=== PATIENT | female | born 1990 ===

== ENCOUNTER 2017-10-26 10:04 | Emergency (ER) | payer OTHER ==
[2017-10-26 10:20] VITALS: BP 122/81; PULSE 94; RESP 18; TEMP 99.9; O2SAT 99
--- NOTE | 2017-10-26 11:04 | C.PDOC ---
History Of Present Illness 26 year old female presents to the ER with complaints of nonproductive cough, headache, sore throat, runny nose, and chills since yesterday. Patient has not been seen by PMD for current symptoms. She denies abdominal pain, nausea, vomiting, diarrhea, dysuria. Time Seen by Provider: 10/26/17 10:08 Chief Complaint (Nursing): Cough, Cold, Congestion History Per: Patient History/Exam Limitations: no limitations Onset/Duration Of Symptoms: Days Current Symptoms Are (Timing): Still Present Location Of Pain: Headache Sick Contacts (Context): None Associated Symptoms: Chills, Sore Throat, Cough (Nonproductive), Sinus Drainage. denies: Nausea, Vomiting, Diarrhea, Other (Abdominal pain) Ear Symptoms: Bilateral: None Severity: Mild Recent travel outside of the [place]: No Past Medical History Reviewed: Historical Data, Nursing Documentation, Vital Signs Vital Signs: Last Vital Signs Temp 99.9 F H 10/26/17 10:13 Pulse 94 H 10/26/17 10:13 Resp 18 10/26/17 10:49 BP 122/81 10/26/17 10:13 Pulse Ox 99 10/27/17 17:13 - Medical History PMH: No Chronic Diseases Family History: States: No Known Family Hx - Social History Hx Tobacco Use: No Hx Alcohol Use: No Hx Substance Use: No - Immunization History Hx Influenza Vaccination: No Hx Pneumococcal Vaccination: No Review Of Systems Constitutional: Positive for: Chills ENT: Positive for: Nose Congestion, Throat Pain Cardiovascular: Negative for: Chest Pain Respiratory: Positive for: Cough (Nonproductive). Negative for: Shortness of Breath Gastrointestinal: Negative for: Nausea, Vomiting, Abdominal Pain, Diarrhea Genitourinary: Negative for: Dysuria, Hematuria Skin: Negative for: Rash Neurological: Positive for: Headache Physical Exam - Physical Exam Appears: Well, Non-toxic, Other (Occasionally coughing, speaking in full sentences) Skin: Normal Color, Warm, Dry, No Rash Head: Normacephalic Eye(s): bilateral: Normal Inspection Ear(s): Bilateral: Normal Nose: Normal Oral Mucosa: Moist Throat: Erythema (Mild), No Exudate, No Drooling, No Other (Swelling) Neck: Normal, Supple Lymphatic: No Adenopathy Cardiovascular: Rhythm Regular Respiratory: Normal Breath Sounds, No Rales, No Rhonchi, No Wheezing Gastrointestinal/Abdominal: Normal Exam, Bowel Sounds, Soft, No Tenderness Neurological/Psych: Oriented x3 ED Course And Treatment O2 Sat by Pulse Oximetry: 99 (Room air) Pulse Ox Interpretation: Normal Progress Note: Patient given PO Tessalon in ED. Suspect viral URI. Patient given Rxs for Tessalon, Motrin, Chloraseptic spray, and was instructed to drink plenty of fluids and follow up with PMD in 1-2 days. She understands she should return to ED if symptoms worsen. Reevaluation Time: 10:45 Reassessment Condition: Improved Disposition Counseled Patient/Family Regarding: Diagnosis, Need For Followup, Rx Given - Disposition Referrals: Kyle Salcedo DO [Staff Provider] - Disposition: HOME/ ROUTINE Disposition Time: 10:45 Condition: STABLE Additional Instructions: FOLLOW UP WITH YOUR DOCTOR IN 1-2 DAYS USE MEDICATIONS NEEDED DRINK PLENTY OF FLUIDS RETURN TO ER IF YOU HAVE WORSENING SYMPTOMS Prescriptions: Benzonatate [Tessalon [place]] 100 mg PO BID PRN #15 sgl PRN Reason: Cough Ibuprofen [Motrin Tab] 600 mg PO Q6 PRN #30 tab PRN Reason: fever/pain Phenol/Glycerin [Chloraseptic Max [place]] 1 spray MM Q6 PRN #1 spray PRN Reason: THROAT PAIN Instructions: Cough, Runny Nose, and the Common Cold (DC) Forms: [employer] (Luxembourgish) Print Language: URDU - Clinical Impression Clinical Impression: Upper respiratory infection, Viral disease - Scribe Statement The provider has reviewed the documentation as recorded by the Scribrobbin Elaine All medical record entries made by the Scribe were at my direction and personally dictated by me. I have reviewed the chart and agree that the record accurately reflects my personal performance of the history, physical exam, medical decision making, and the department course for this patient. I have also personally directed, reviewed, and agree with the discharge instructions and disposition.
== END 2017-10-26 10:50 | disposition home or self-care (01) ==
LOC: C.ER 10:04
DX: J06.9 Acute upper respiratory infection, unspecified (principal)

== ENCOUNTER 2017-12-08 09:08 | Emergency (ER) | payer OTHER ==
[2017-12-08 09:15] VITALS: TEMP 98.4
--- NOTE | 2017-12-08 10:46 | C.PDOC ---
History Of Present Illness 27-year-old female, presents to the emergency department with complaints of left eye swelling that she woke up with today. Patient states the eye is slightly itchy, but denies trauma, nausea/vomiting, fever, visual change, chills or any other associated symptoms. No other complaints at this time. Time Seen by Provider: 12/08/17 09:17 Chief Complaint (Nursing): Eye Problem History Per: Patient History/Exam Limitations: no limitations Onset/Duration Of Symptoms: Hrs Current Symptoms Are (Timing): Still Present Past Medical History Reviewed: Historical Data, Nursing Documentation, Vital Signs Vital Signs: Last Vital Signs Temp 98.4 F 12/08/17 09:12 Pulse 81 12/08/17 09:12 Resp 17 12/08/17 09:12 BP 135/80 12/08/17 09:12 Pulse Ox 100 12/08/17 09:12 Family History: States: No Known Family Hx - Social History Hx Tobacco Use: No Hx Alcohol Use: No Hx Substance Use: No - Immunization History Hx Tetanus Toxoid Vaccination: No Hx Influenza Vaccination: No Hx Pneumococcal Vaccination: No Review Of Systems Except As Marked, All Systems Reviewed And Found Negative. Constitutional: Negative for: Fever, Chills Eyes: Positive for: Eyelid Inflammation ENT: Negative for: Ear Pain, Nose Discharge, Throat Pain Respiratory: Negative for: Cough Gastrointestinal: Negative for: Vomiting Physical Exam - Physical Exam Appears: Non-toxic, No Acute Distress Skin: Warm, Dry, No Rash Head: Atraumatic, Normacephalic Eye(s): bilateral: PERRL, EOMI, left: Other (upper periorbital swelling. No tenderness, no conjunctival injection. ) Nose: Normal Oral Mucosa: Moist Lips: Normal Appearing Neck: Normal ROM, Supple Extremity: Normal ROM, No Deformity Neurological/Psych: Oriented x3, Normal Speech, Normal Cranial Nerves, Normal Motor Gait: Steady ED Course And Treatment O2 Sat by Pulse Oximetry: 100 Pulse Ox Interpretation: Normal (RA) Medical Decision Making Medical Decision Making: differential Diagnosis: conjunctivitis vs. allergic reaction. Less likely cellulitis as there is no pain or tenderness. Disposition - Disposition Referrals: Choco Gaines MD [Staff Provider] - Disposition: HOME/ ROUTINE Disposition Time: 10:43 Condition: STABLE Additional Instructions: Follow up with the Eye doctor within 1-2 days. Return if worsened. Prescriptions: DiphenhydrAMINE [Benadryl] 25 mg PO QID #28 cap predniSONE [Prednisone] 10 mg PO BID #10 tab Tobramycin 0.3% [Tobramycin 5 Ml] 1 drop OS TID #1 bottle Instructions: Conjunctivitis ([place]) Forms: [employer] (Prydeinig) - Clinical Impression Clinical Impression: Eye swelling, Conjunctivitis - Scribe Statement The provider has reviewed the documentation as recorded by the Scribe (Latasha Jamil) All medical record entries made by the Scribe were at my direction and personally dictated by me. I have reviewed the chart and agree that the record accurately reflects my personal performance of the history, physical exam, medical decision making, and the department course for this patient. I have also personally directed, reviewed, and agree with the discharge instructions and disposition.
[2017-12-08 11:28] VITALS: BP 122/75; PULSE 84; RESP 15
[2017-12-08 14:13] VITALS: O2SAT 100
== END 2017-12-08 11:28 | disposition home or self-care (01) ==
LOC: C.ER 09:08
DX: H10.9 Unspecified conjunctivitis (principal)